=== PATIENT | female | born 1975 | race Two or more races ===

== ENCOUNTER 2020-03-25 14:24 | Outpatient (CLI) | payer OTHER ==
[~2020-03-25 14:24] MED LIST: NABUMETONE750 MG PO; NORFLEX100MG PO
== END 2020-03-25 14:33 | disposition home or self-care (01) ==
LOC: RAD 14:24
PROVIDERS: ATTEND Specialist
DX: I10 Essential (primary) hypertension (principal); R10.84 Generalized abdominal pain

== ENCOUNTER 2020-03-29 13:37 | Inpatient (IN) | payer OTHER ==
[~2020-03-29] VITALS: Ht 170.2 cm; Wt 76.7 kg
[2020-03-30] MEDS ORDERED: ATORVASTATIN CA20 MG PO (12:24)
== END 2020-04-02 11:39 | disposition home or self-care (01) | DRG 735 ==
LOC: OB/GYN 03-31 06:00 → O/R 03-31 06:00 → OB/GYN 03-31 11:00
PROVIDERS: ADMIT Specialist; ATTEND Specialist
PROC: 0UT90ZZ Resection of Uterus, Open Approach (ICD-10-PCS; 2020-03-31)
PROC: 0UT10ZZ Resection of Left Ovary, Open Approach (ICD-10-PCS; 2020-03-31)
PROC: 0UT60ZZ Resection of Left Fallopian Tube, Open Approach (ICD-10-PCS; 2020-03-31)
PROC: 0UB50ZZ Excision of Right Fallopian Tube, Open Approach (ICD-10-PCS; 2020-03-31)
PROC: 07TC0ZZ Resection of Pelvis Lymphatic, Open Approach (ICD-10-PCS; principal; 2020-03-31 08:30)
DX: C54.1 Malignant neoplasm of endometrium (principal); D25.0 Submucous leiomyoma of uterus; D25.1 Intramural leiomyoma of uterus; D25.2 Subserosal leiomyoma of uterus; N80.0 Endometriosis of uterus; N83.02 Follicular cyst of left ovary; N83.8 Other noninflammatory disorders of ovary, fallopian tube and broad ligament